=== PATIENT | female | born 1995 | race Caucasian/White ===

== ENCOUNTER 2017-07-18 01:35 | Inpatient (IN) | payer MEDICAID ==
[2017-07-18 02:13] LABS: APPEARANCE,URINE CLOUDY; BILIRUBIN,URINE NEGATIVE (NEGATIVE); COLOR,URINE YELLOW; GLUCOSE, URINE NEGATIVE (NEGATIVE); KETONES,URINE NEGATIVE (NEGATIVE); LEUKOCYTE ESTERASE,URINE TRACE (NEGATIVE); NITRITE,URINE NEGATIVE (NEGATIVE); PROTEIN,URINE 100 mg/dL (NEGATIVE); URINE SPECIFIC GRAVITY 1.009; UROBILINOGEN,URINE NEGATIVE mg/dL (<2.0)
[2017-07-18 02:16] LABS: AMNISURE (ROM) POSITIVE (NEGATIVE)
[2017-07-18] MEDS ORDERED: PENICILLIN G-K 5 MILLION UNIT VIAL ONE ×3 (02:17→10:39)
[2017-07-18] MEDS ORDERED: PENICILLIN G POTASSIUM 5,000,000 UNIT in DEXTROSE 5%-WATER 100 ML IV ONE (02:27)
[2017-07-18] MEDS ORDERED: RINGERS SOLUTION,LACTATED 1,000 ML IV ONE (02:27)
[2017-07-18] MEDS ORDERED: RINGERS SOLUTION,LACTATED 1,000 ML IV PRN (02:27)
[2017-07-18 02:29] LABS: URINE AMPHETAMINES SCREEN NEGATIVE; URINE BARBITURATES SCREEN NEGATIVE; URINE BENZODIAZEPINES SCREEN NEGATIVE; URINE COCAINE SCREEN NEGATIVE; URINE MARIJUANA (THC) SCREEN NEGATIVE; URINE METHADONE SCREEN NEGATIVE; URINE PHENCYCLIDINE SCREEN NEGATIVE
[2017-07-18 03:05] LABS: ABSOLUTE BASOPHILS # (AUTO) 0.1 10^3/uL (0.0-0.2); ABSOLUTE LYMPHOCYTES (AUTO) 2.2 10^3/uL (0.5-4.7); ABSOLUTE MONOCYTES (AUTO) 0.7 10^3/uL (0.1-1.4); ABSOLUTE NEUT (AUTO) 11.9 10^3/uL (1.7-8.2); BASOPHILS % (AUTO) 0.5 % (0-2); EOSINOPHILS % (AUTO) 0.2 % (0-6); HEMATOCRIT 29.5 % (36.0-47.0); HEMOGLOBIN 9.7 g/dL (12.0-15.5); LYMPHOCYTES % (AUTO) 14.5 % (13-45); MEAN CORPUSCULAR HEMOGLOBIN 28.1 pg (27.0-33.4); MEAN CORPUSCULAR VOLUME 85 fl (80-97); PLATELET COUNT 238 10^3/uL (150-450); RED BLOOD COUNT 3.47 10^6/uL (3.72-5.28); RED CELL DISTRIBUTION WIDTH 13.5 % (11.5-14.0); SEGMENTED NEUTROPHILS % (AUTO) 79.8 % (42-78); TOTAL CELLS COUNTED % (AUTO) 100 %; WHITE BLOOD COUNT 14.9 10^3/uL (4.0-10.5)
[2017-07-18] MEDS ORDERED: MISOPROSTOL 0.2 MG TABLET ONE ×2 (03:12)
[2017-07-18] MEDS ORDERED: OXYTOCIN/NORMAL SALINE 20 UNIT/1,000 ML RTUINJ ONE (03:12)
[2017-07-18] MEDS ORDERED: LIDOCAINE 1% INJ-PF (10 MG/ML) 30 ML SDV ONE (03:12)
--- NOTE | 2017-07-18 03:31 | Admission Physical ---
Datetime Report Generated by CPN: 07/18/2017 03:30 CURRENT ADMISSION Chief Complaint: Suspected Ruptured Membranes Indication for Induction: , Intrauterine ; Induction of Labor Indication for Induction- Other: SROM Admit Plan: Admit to Unit; Initiate Labor Induction Protocol ALLERGIES Medication Allergies: No Medication Allergies: No Known Allergies (10/27/2015) Latex: No Latex Allergies Food Allergies: NKA Environmental Allergies: NKA OBSTETRICAL HISTORY EDC: 08/27/2017 00:00 : 2 Para: 1 Term: 1 : 0 SAB: 0 IAB: 0 Livin Gestational Diabetes: No Rh Sensitization: No Incompetent Cervix: No CIELO: No Infertility: No ART Treatment: No Uterine Anomaly: No IUGR: No Hx Previous C/S: No Macrosomia: No Hx Loss/Stillborn: No PIH: No Hx : No Placenta Previa/Abruption: No Depression/PP Depression: No PTL/PROM: Yes Post Hemorrhage: No Obstetrical History Comments: G1- 40.6 baby boy 7lbs 8oz G2- current SEE RECORDS Alcohol: No Marijuana : No Cocaine: No Other Illicit Drugs: No Cigarettes: Never Smoker. 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 Surgery: No Heart Disease: No Hosp/Surgery: No Autoimmune Disorder: No Anesthetic Complications: No Kidney Disease: No Abnormal Pap Smear: No Neuro/Epilepsy: No Psychiatric Disorders: No Other Medical Diseases: No Hepatitis/Liver Disease: No Significant Family History: No Varicosities/Phlebitis: No Trauma/Violence : No Thyroid Dysfunction: No Medical History Comments: anemia INFECTIOUS HISTORY Gonorrhea: No Genital Herpes: No Chlamydia: No Tuberculosis: No Syphilis: No Hepatitis: No HIV/AIDS Exposure: No Rash or Viral Illness: No HPV: No PHYSICAL EXAM General: Normal HEENT: Normal Neurologic: Normal Thyroid: Normal Heart: Normal Lungs: Normal Breast: Deferred Back: Normal Abdomen: Normal Genitourinary Exam: Normal Extremities: Normal DTRs: Normal Pelvic Type: Adequate Vital Signs: Reviewed VAGINAL EXAM Dilatation: 1 Effacement: 50 Station: -1 MEMBRANES Pooling: Positive Membranes: Ruptured FETUS A EGA: 34.2 Monitoring: External US FHR- Baseline: 130 Variability: Moderate 6-25bpm Accelerations: 15X15 Decelerations: Variable FHR Category: Category I Admit Comment: plan abx and delivery PLANS FOR LABOR AND DELIVERY Labor and Delivery: None Pain Management: Epidural Feeding Preference: Formula Benefit of Breast Feed Discussed: Yes Circumcision: Yes INFORMED CONSENT Signature: with User ID: [email or web address]
[2017-07-18] MEDS ORDERED: NALBUPHINE HCL INJ 10 MG/1 ML AMPULE INJ ONE (04:17)
[2017-07-18] MEDS ORDERED: PROMETHAZINE HCL INJ 25 MG/1 ML VIAL IV ONE (04:17)
[2017-07-18] MEDS ORDERED: PROMETHAZINE HCL INJ 25 MG/1 ML VIAL ONE (04:21)
[2017-07-18] MEDS ORDERED: NALBUPHINE HCL INJ 10 MG/1 ML AMPULE ONE (04:22)
[2017-07-18 04:26] LABS: CHLAM PCR NOT DETECTED (NOT DETECT); GON PCR NOT DETECTED (NOT DETECT)
[2017-07-18] MEDS ORDERED: OXYTOCIN/NORMAL SALINE 20 UNIT/1,000 ML RTUINJ IV PRN ×2 (06:08→12:58)
[2017-07-18] MEDS ORDERED: PENICILLIN G POTASSIUM 2,500,000 UNIT in DEXTROSE 5%-WATER 50 ML IV SCH (06:27)
--- NOTE | 2017-07-18 09:17 | Admission Physical ---
Datetime Report Generated by CPN: 07/18/2017 09:17 CURRENT ADMISSION Chief Complaint: Suspected Ruptured Membranes Chief Complaint: Other Indication for Induction- Other: SROM Admit Impression : , Intrauterine ; Induction of Labor Admit Plan: Admit to Unit; Initiate Labor Induction Protocol Admit Plan- Other: TESTING ALLERGIES Medication Allergies: No Medication Allergies: No Known Allergies (07/18/2017) Medication Allergies: No Known Allergies (10/27/2015) Latex: No Latex Allergies Food Allergies: NKA Environmental Allergies: NKA OBSTETRICAL HISTORY EDC: 08/27/2017 00:00 : 2 Para: 1 Term: 1 : 0 SAB: 0 IAB: 0 Ectopic: 0 Livin Cesareans: 0 VBACs: 0 Multiple Births: 0 Gestational Diabetes: No Rh Sensitization: No Incompetent Cervix: No CIELO: No Infertility: No ART Treatment: No Uterine Anomaly: No IUGR: No Hx Previous C/S: No Macrosomia: No Hx Loss/Stillborn: No PIH: No Hx : No Placenta Previa/Abruption: No Depression/PP Depression: No PTL/PROM: Yes Post Hemorrhage: No Current Procedures: Ultrasound; NST Obstetrical History Comments: G1- 40.4 baby boy 7lbs 8oz G2- current SEE RECORDS Alcohol: No Marijuana : No Cocaine: No Other Illicit Drugs: No Cigarettes: Never Smoker. [id number] MEDICAL HISTORY Diabetes: No Blood Transfusion: No Pulmonary Disease (Asthma, TB): No Breast Disease: No Hypertension: No Boat Pilot Surgery: No Heart Disease: No Hosp/Surgery: Yes Autoimmune Disorder: No Anesthetic Complications: No Kidney Disease: No Abnormal Pap Smear: No Neuro/Epilepsy: No Psychiatric Disorders: Yes Other Medical Diseases: No Hepatitis/Liver Disease: No Significant Family History: No Varicosities/Phlebitis: No Trauma/Violence : No Thyroid Dysfunction: No Medical History Comments: anemia INFECTIOUS HISTORY Gonorrhea: No Genital Herpes: No Chlamydia: Yes Tuberculosis: No Syphilis: No Hepatitis: No HIV/AIDS Exposure: No Rash or Viral Illness: No HPV: No Infectious History Comments: chlamydia 2015 PHYSICAL EXAM General: Normal HEENT: Normal Neurologic: Normal Thyroid: Normal Heart: Normal Lungs: Normal Breast: Deferred Back: Normal Abdomen: Normal Genitourinary Exam: Normal Extremities: Normal DTRs: Normal Pelvic Type: Adequate Physical Exam Comments: TESTING Vital Signs: Reviewed VAGINAL EXAM Dilatation: 1 Effacement: 50 Station: -1 MEMBRANES Pooling: Positive Membranes: Ruptured FETUS A EGA: 34.2 Monitoring: External US FHR- Baseline: 130 Variability: Moderate 6-25bpm Accelerations: 15X15 Decelerations: Variable FHR Category: Category I Admit Comment: plan abx and delivery PLANS FOR LABOR AND DELIVERY Labor and Delivery: None Pain Management: Epidural Feeding Preference: Formula Benefit of Breast Feed Discussed: Yes Circumcision: Yes INFORMED CONSENT Assignment: Britany Lopez MD Signature: with User ID: Whitney Signature: with User ID: Miriam, Addendum/Amendment: Testing format changes. Signature: with User ID: Miriam Signature: with User ID: Miriam : with User ID: Whitney : with User ID: Miriam, Addendum/Amendment: Testing format changes. : with User ID: Miriam : with User ID: Miriam
[2017-07-18] MEDS ORDERED: PENICILLIN G-K 5 MILLION UNIT VIAL IV SCH (10:00)
[2017-07-18] MEDS ORDERED: FENTANYL CITRATE INJ/PF 100 MCG/2 ML AMPUL ONE (10:17)
[2017-07-18] MEDS ORDERED: PHENYLEPHRINE HCL INJ/PF 10 MG/1 ML SDV ONE (10:17)
[2017-07-18] MEDS ORDERED: FENTANYL/BUPIVACAINE/NS/PF 200 MCG/100 ML RTUINJ EPI ONE (10:17)
[2017-07-18] MEDS ORDERED: EPHEDRINE SULFATE INJ 50 MG/1 ML AMPULE ONE (10:17)
[2017-07-18] MEDS ORDERED: BUPIVACAINE HCL 0.25 % INJ/PF (2.5 MG/1 ML) 30 ML VIAL ONE (10:17)
--- NOTE | 2017-07-18 11:42 | L&D Progress Notes ---
PROGRESS NOTES Datetime Report Generated by CPN: 07/18/2017 11:41 PROGRESS NOTE Impression: Normal Progression of Labor Procedures: Sterile Vag Exam Plan: Continue Present Management Informed Consent Obtained: Vaginal Delivery; Risks, Benefits and Alternatives Discussed Vital Signs : Reviewed Comment: pt now comfortable s/p epidural. al/c/+1. Anticpate VAGINAL EXAM Dilatation: 9 Dilatation: 1 Effacement: 100 Effacement: 50 Station: 1 Station: -1 Contractions: q 2 MEMBRANES Pooling: Positive Membranes: Ruptured Membranes: Ruptured FETUS A FHR - Baseline: 135 Monitoring: External US Variability: Moderate 6-25bpm Accelerations: 15X15 Decelerations: Early FHR Category: Category I : 34.2 SIGNATURE SIGNATURE: [id number];[id number] SIGNATURE: [id number] Signature: with User ID: Chelsea
--- NOTE | 2017-07-18 12:32 | L&D Progress Notes ---
PROGRESS NOTES Datetime Report Generated by CPN: 07/18/2017 12:32 PROGRESS NOTE Impression: Normal Progression of Labor Procedures: Sterile Vag Exam Plan: Continue Present Management Informed Consent Obtained: Vaginal Delivery; Risks, Benefits and Alternatives Discussed Vital Signs : Reviewed Comment: pt now comfortable s/p epidural. prior cvx check by RN. Pt with variables and earlys - therefore I re-eval cvx and cvx 8/80/+1/ Anticipate VAGINAL EXAM Dilatation: 9 Effacement: 100 Station: 1 Contractions: q 2 MEMBRANES Membranes: Ruptured FETUS A FHR - Baseline: 135 Monitoring: External US Variability: Moderate 6-25bpm Accelerations: 15X15 Decelerations: Early FHR Category: Category I FETUS C SIGNATURE: [id number];[id number] Signature: with User ID: Chelsea
[2017-07-18] MEDS ORDERED: MISOPROSTOL 0.2 MG TABLET PR PRN (12:58)
[2017-07-18] MEDS ORDERED: ACETAMINOPHEN 325 MG TABLET PO PRN (12:58)
[2017-07-18] MEDS ORDERED: DIPHENHYDRAMINE HCL 25 MG CAPSULE PO PRN (12:58)
[2017-07-18] MEDS ORDERED: PROMETHAZINE HCL 25 MG SUPP.RECT PR PRN (12:58)
[2017-07-18] MEDS ORDERED: ZOLPIDEM TARTRATE 5 MG TABLET PO PRN (12:58)
[2017-07-18] MEDS ORDERED: GLYCERIN/WITCH HAZEL LEAF 1 EACH MED..PAD TP PRN (12:58)
[2017-07-18] MEDS ORDERED: NA PHOS,M-B/NA PHOS,DI-BA (ADULT) 133 ML ENEMA PR PRN (12:58)
[2017-07-18] MEDS ORDERED: PROMETHAZINE HCL INJ 25 MG/1 ML VIAL IV PRN (12:58)
[2017-07-18] MEDS ORDERED: DIPH/PERTUSS(ACELL)/TETANUS VAC/PF 0.5 ML SYR (>=10YO) IM PRN (12:58)
[2017-07-18] MEDS ORDERED: ACETAMINOPHEN WITH CODEINE #3 TABLET PO PRN ×2 (12:58)
[2017-07-18] MEDS ORDERED: PSEUDOEPHEDRINE HCL 30 MG TABLET PO PRN (12:58)
[2017-07-18] MEDS ORDERED: MAGNESIUM HYDROXIDE SUSP 30 ML UDCUP PO PRN (12:58)
[2017-07-18] MEDS ORDERED: PROMETHAZINE HCL 25 MG TABLET PO PRN (12:58)
[2017-07-18] MEDS ORDERED: BENZOCAINE/MENTHOL AEROSOL SPRAY 56 ML TOP PRN (12:58)
[2017-07-18] MEDS ORDERED: DIBUCAINE 1% OINTMENT 28 GM TP PRN (12:58)
[2017-07-18] MEDS ORDERED: MEASLES,MUMPS&RUBELLA VACC/PF 0.5 ML VIAL SUBCUT PRN (12:58)
--- NOTE | 2017-07-18 14:34 | Delivery Summary ---
Del Sum A-C Datetime Report Generated by CPN: 07/18/2017 14:34 DELIVERY PERSONNEL DELIVERY PERSONNEL: [id number] Delivery Doctor:: Anais Edmonds MD Labor and Delivery Nurse:: Valerie Fong RNspecial services supervisor Nurse:: Kiera Meyer RN Nursery Nurse:: Dickson Barboza RN Nursery Nurse:: Elizabeth Damico RN Tobacco Drummer/HORTICULTURE SUPERINTENDENT: Jerri Bourgeois CNA II MATERNAL INFORMATION Delivery Anesthesia: Epidural Medications After Delivery: Pitocin Drip 20 Units/1000ml NSS; Other-Please Comment Meds After Delivery Comment: Cytotec 1000mcg MA Estimated Blood Loss (ml): 300 Maternal Complications: Premature Rupture of Membranes Provider Comments: VMI delivered in [place] presentation. No nuchal cord. Shoulders and body delivered without difficulty. Cord doubly clamped and cut and infant to maternal abd for NRP. NICU team present. Placenta delivered intact spontaneously. No perineal lacerations. FF at U. Good hemostasis. Mother and baby stable upon provider leaving the room. EBL 300ml, QBL pending. LABOR SUMMARY EDC: 08/27/2017 00:00 No. Babies in Womb: 1 Attempted: No Labor Anesthesia: Epidural LABOR INFORMATION Reason for Induction: Premature Rupture of Membranes Onset of Labor: 07/18/2017 00:00 Complete Dilatation: 07/18/2017 12:34 Oxytocin: Induction Group B Beta Strep: unknown Antibiotics # of Doses: 3 Antibiotics Time of Last Dose: 1043 Name of Antibiotic Given: PCN Steroids Given: None Reason Steroids Not Administered: Not Applicable MEMBRANES Membranes Rupture Method: Spontaneous Rupture of Membranes: 07/18/2017 00:00 Length of Rupture (hr): 12.60 Amniotic Fluid Color: Clear Amniotic Fluid Amount: Moderate Amniotic Fluid Odor: Normal STAGES OF LABOR Stage 1 hr: 12 Stage 1 min: 34 Stage 2 hr: 0 Stage 2 min: 2 Stage 3 hr: 0 Stage 3 min: 2 Total Time in Labor hr: 12 Total Time in Labor min: 38 VAGINAL DELIVERY Episiotomy: None Laceration #1: None Laceration Extension #1: N/A Laceration Repair: Not Applicable Laceration Repair Note: No perineal laceration Sponge Count Correct: Yes Sharps Count Correct: Yes CSECTION DELIVERY Primary Indication: N/A Secondary Indication: N/A CSection Incidence: N/A Labor: N/A Elective: N/A CSection Incision: N/A BABY A INFORMATION Infant Delivery Date/Time: 07/18/2017 12:36 Method of Delivery: Vaginal Born in Route : No : N/A Forceps: N/A Vacuum Extraction: N/A Shoulder Dystocia : No PRESENTATION/POSITION BABY A Presentation: Cephalic Cephalic Presentation: Vertex Vertex Position: Left Occipital Anterior Breech Presentation: N/A PLACENTA INFORMATION BABY A Placenta Delivery Time : 07/18/2017 12:38 Placenta Method of Delivery: Spontaneous Placenta Status: Delivered SCORES BABY A Heart Rate 1 min: >100 bpm Resp Effort 1 min: Good Cry Reflex Irritability 1 min: Cough or Sneeze or Pulls Away Muscle Tone 1 min: Active Motion Color 1 min: Blue/Pale Resuscitation Effort 1 min: Tactile Stimulation SCORE 1 MIN: 8 Heart Rate 5 min: >100 bpm Resp Effort 5 min: Good Cry Reflex Irritability 5 min: Cough or Sneeze or Pulls Away Muscle Tone 5 min: Active Motion Color 5 min: Body Leming, Extremities Blue SCORE 5 MIN: 9 INFORMATION BABY A Gestational Age at Delivery: 34.2 Gestational Status: Late - 34- 36.6 Weeks Infant Outcome : Liveborn Condition : Stable Sex: Male IDENTIFICATION BABY A Infant Verification Date/Time: 07/18/2017 13:24 ID Band Number: [id number] Mother's Name Verified: Yes Infant RN Verifying Infant: A Fong RN Additional Verifying Personnel: [employer] ST WEIGHT/LENGTH BABY A Infant Birthweight (gm): 2353 Weight (lb): 5 Weight (oz): 3 Length (in): 18.25 Length (cm): 46.36 CORD INFORMATION BABY A No. Cord Vessels: 3 Nuchal Cord : N/A Cord Blood Taken: Yes-For Eval (Mom's Blood Type - or O+) Suction: None ASSESSMENT BABY A Complications: Multiple Variable Decels Physical Findings at Delivery: Within Normal Limits Respirations: Grunting; Sternal Retractions Skin to Skin: Yes Oil Analyst/ALS Called : No Infant Care By: Hao Barboza RN/C Mookie RN Transferred To: NICU BABY B INFORMATION : N/A SIGNATURES Signature: with User ID: [email or web address]
[2017-07-18] MEDS: IBUPROFEN 800 MG TABLET PO SCH ×2 (18:05→22:01)
[2017-07-18] MEDS: DOCUSATE SODIUM 100 MG CAPSULE PO SCH (18:05)
[2017-07-18] MEDS: FERROUS SULFATE 325 MG TABLET PO SCH (18:05)
[2017-07-18] MEDS: FAMOTIDINE 20 MG TABLET PO SCH (22:02)
[2017-07-19] MEDS: IBUPROFEN 800 MG TABLET PO SCH ×3 (07:07→21:01)
[2017-07-19 08:38] LABS: HEMATOCRIT 27.7 % (36.0-47.0); MEAN CORPUSCULAR HEMOGLOBIN 27.9 pg (27.0-33.4); MEAN CORPUSCULAR HGB CONC 32.5 g/dL (32.0-36.0); MEAN CORPUSCULAR VOLUME 86 fl (80-97); PLATELET COUNT 194 10^3/uL (150-450); RED BLOOD COUNT 3.23 10^6/uL (3.72-5.28); WHITE BLOOD COUNT 11.7 10^3/uL (4.0-10.5)
[2017-07-19] MEDS: FAMOTIDINE 20 MG TABLET PO SCH ×2 (10:30→21:06)
[2017-07-19] MEDS: SENNOSIDES/DOCUSATE 8.6-50 MG 1 EACH TABLET PO SCH (10:30)
[2017-07-19] MEDS: DOCUSATE SODIUM 100 MG CAPSULE PO SCH ×2 (10:30→17:01)
[2017-07-19] MEDS: PRENATAL VITAMIN W DHA CAPSULE PO SCH (10:30)
[2017-07-19] MEDS: FERROUS SULFATE 325 MG TABLET PO SCH ×2 (10:31→17:01)
--- NOTE | 2017-07-19 11:06 | PDOC PROGRESS REPORT ---
Subjective-OB Progress Note for:: 07/19/17 Subjective: tolerating diet without nausea, bleeding slowing, pain controlled with current meds. no needs expressed Physical Exam (OB) Vital Signs: Temp Pulse Resp BP Pulse Ox 97.8 F 58 L 14 104/59 L 98 07/19/17 07:59 07/19/17 07:59 07/19/17 07:59 07/19/17 07:59 07/19/17 07:59 Intake & Output 07/18/17 07/19/17 07/20/17 06:59 06:59 06:59 Intake Total 300 250 Balance 300 250 Weight 78.7 kg - Abdomen Description: Soft, Round Hernia Present: No Fundal Description: Firm, Midline Fundal Height: u/u - u/2 - Abdominal Tenderness: Nontender - Extremities Lower extremities: Mio's sign - neg Calf: Normal, Nontender Objective-Diagnostic Laboratory: 07/19/17 07:39 07/19/17 07:39 WBC 11.7 H RBC 3.23 L Hgb 9.0 L Hct 27.7 L MCV 86 MCH 27.9 MCHC 32.5 RDW 14.0 Plt Count 194 Assessment and Plan(PN) - Assessment and Plan (1) Chlamydia infection affecting Is this a current diagnosis for this admission?: Yes (2) Delivery normal Is this a current diagnosis for this admission?: Yes - Time Spent with Patient Time with patient: Less than 15 minutes - Disposition Anticipated Discharge: Home Within: within 24 hours
[2017-07-20] MEDS: IBUPROFEN 800 MG TABLET PO SCH (07:17)
[2017-07-20 08:10] VITALS: BP 114/61
[2017-07-20] MEDS: FAMOTIDINE 20 MG TABLET PO SCH (09:02)
[2017-07-20] MEDS: DOCUSATE SODIUM 100 MG CAPSULE PO SCH (09:02)
[2017-07-20] MEDS: PRENATAL VITAMIN W DHA CAPSULE PO SCH (09:02)
[2017-07-20] MEDS: FERROUS SULFATE 325 MG TABLET PO SCH (09:02)
[2017-07-20] MEDS: SENNOSIDES/DOCUSATE 8.6-50 MG 1 EACH TABLET PO SCH (09:02)
--- NOTE | 2017-07-20 10:48 | PDOC DISCHARGE SUMMARY ---
Final Diagnosis Discharge Date: 07/20/17 - Final Diagnosis (1) Chlamydia infection affecting Is this a current diagnosis for this admission?: Yes (2) Delivery normal Is this a current diagnosis for this admission?: Yes Discharge Data - Discharge Medication Prescriptions: Ibuprofen [Motrin 800 mg Tablet] 800 mg PO Q8HP PRN #90 tablet PRN Reason: Home Medications: Pnv95/Iron Fum/Folic Acid [ Caplet] 1 tab PO DAILY 10/20/15 Ferrous Sulfate [Feosol 325 mg Tablet] 325 mg PO BID #60 tablet 10/29/15 Ascorbic Acid [Vitamin C 500 mg Tablet] 500 mg PO DAILY 07/18/17 Ibuprofen [Motrin 800 mg Tablet] 800 mg PO Q8HP PRN #90 tablet 07/20/17 Gestational Age: 34+2 Reason(s) for Admission: Other - PPROM IOL Procedures: NST Intrapartum Procedure(s): Spontaneous Vaginal Delivery - Data Baby 1 Male Weight: 2.353 kg Home with Mother: No - in NICU - Diagnosis Test Laboratory: Temp Pulse Resp BP Pulse Ox 97.6 F 64 20 114/61 99 07/20/17 08:06 07/20/17 08:06 07/20/17 08:06 07/20/17 08:06 07/20/17 08:06 07/18/17 07/18/17 07/19/17 01:45 02:53 07:39 RBC 3.47 L 3.23 L Hgb 9.7 L 9.0 L Hct 29.5 L 27.7 L Urine Opiates Screen NEGATIVE - Discharge information/Instructions Discharge Activity: Activity As Tolerated, Balance Activity w/Rest, Pelvic Rest Discharge Diet: Regular Disposition: HOME, SELF-CARE Follow up with: [facility] in: 4, Weeks
== END 2017-07-20 13:08 | disposition home or self-care (01) | DRG 775 ==
LOC: LC 01:35 → LR 02:21 → 2S 14:44
PROVIDERS: ADMIT Obstetrics & Gynecology; ATTEND Obstetrics & Gynecology
PROC: 10E0XZZ Delivery of Products of Conception, External Approach (ICD-10-PCS; principal; 2017-07-18)
PROC: 3E033VJ Introduction of Other Hormone into Peripheral Vein, Percutaneous Approach (ICD-10-PCS; 2017-07-18)
PROC: 4A1HXCZ Monitoring of Products of Conception, Cardiac Rate, External Approach (ICD-10-PCS; 2017-07-18)
PROC: 3E0234Z Introduction of Serum, Toxoid and Vaccine into Muscle, Percutaneous Approach (ICD-10-PCS; 2017-07-20)
DX: O42.013 Preterm premature rupture of membranes, onset of labor within 24 hours of rupture, third trimester (principal); D64.9 Anemia, unspecified; O99.02 Anemia complicating childbirth; Z23 Encounter for immunization; Z3A.34 34 weeks gestation of pregnancy; Z37.0 Single live birth
CPT/HCPCS: 36415; 80307; 81001; 84112; 85025; 85027; 86592; 86850; 86900; 86901; 87491; 87591; 88307; 90715; 94760; J2300; J2370; J2540; J2550; J2590; J3010; J3490

== ENCOUNTER 2018-09-17 15:32 | Emergency (ER) | payer MEDICAID ==
--- NOTE | 2018-09-17 16:05 | ER Document Report ---
ED General - General Chief Complaint: Eye Problem Stated Complaint: EYE PROBLEM, PROBLEM WITH URINATION Time Seen by Provider: 09/17/18 15:52 Primary Care Provider: JOHN HAMEED MD [ACTIVE STAFF] - Follow up as needed Mode of Arrival: Ambulatory Information source: Patient TRAVEL OUTSIDE OF THE [place] IN LAST 30 DAYS: No - HPI Patient complains to provider of: Right eye itching, foreign body sensation, dysuria Onset: Other - 4 days ago Onset/Duration: Sudden Quality of pain: Burning Severity: Moderate Pain Level: 3 Associated symptoms: None Exacerbated by: Denies Relieved by: Denies Similar symptoms previously: No Recently seen / treated by doctor: No Notes: 23-year-old female who is 3 para 2 at 24 weeks gestation with irritated right eye. Feels like foreign body in it. Does not wear contacts or glasses. Periorbital bruising and some conjunctival hemorrhage present. Claims no trauma. Also having burning with chin for a couple of days. No fevers or chills. No nausea or vomiting. No diarrhea. - Related Data Allergies/Adverse Reactions: No Known Allergies Allergy (Verified 09/17/18 15:33) Past Medical History - General Information source: Patient - Social History Smoking Status: Smoker,Current Status Unk Family History: Reviewed & Not Pertinent Psychiatric Medical History: Reports: Hx Depression - Immunizations Immunizations up to date: Yes Hx Diphtheria, Pertussis, Tetanus Vaccination: Yes Hx Pneumococcal Vaccination: 05/05/11 Review of Systems - Review of Systems Notes: Constitutional: No fevers. No chills. EENT: Right eye redness, right periorbital bruising, positive sub-conjunctival hemorrhage Cardiovascular: No chest pain. No palpitations. Respiratory: No cough. No shortness of breath. No respiratory distress. Gastrointestinal: No abdominal pain. No nausea, vomiting, or diarrhea. Genitourinary: Atraumatic. No lesions. No pain. No discharge. Musculoskeletal: Atraumatic. No swelling. No deformities. Skin: No rash or lesions. Lymphatic: No swollen lymph nodes. Neurologic: No headache. No syncope. Psychiatric: No suicidal or homicidal ideation. Physical Exam - Vital signs Vitals: Temp Pulse Resp BP Pulse Ox 98.6 F 74 16 120/52 L 100 09/17/18 15:42 09/17/18 15:42 09/17/18 15:42 09/17/18 15:42 09/17/18 15:42 - Notes Notes: General: Well-developed, well-nourished. In no acute distress. Non-toxic appearing. Cardiac: Well-perfused. Regular rate and rhythm. No murmurs, rubs, or gallops. Pulmonary: No respiratory distress. No cyanosis. Bilateral lung fiels are clear to auscultation. Abdominal: Non-distended. Non-rigid. Bowels sounds are present in all four quadrants. No guarding or rebound. HEENT: Head is atraumatic. Right-sided face is examined. There is right periorbital bruising. There is no obvious bony deformity. PERRLA, EOMI, sub- conjunctival hemorrhages to the right eye. No mattering of the eyelashes. No corneal abnormality noted on fluorescein stain exam Neck: Supple. No adenopathy. No meningismus. Dermatologic: Warm with good turgor. No rash. Atraumatic. Chest: Atraumatic. No chest wall tenderness to palpation. Musculoskeletal: Moves all extremities well. No range of motion deficits. no muscular or joint tenderness. No paraspinal muscle tenderness. no midline spinal tenderness or step-off. Genitourinary: Examination deferred Neurologic: No gross neurologic deficits. Psychiatric: Normal mood. Course - Re-evaluation Re-evalutation: 09/17/18 16:06 The right periorbit almost looks traumatic especially with the subconjunctival hemorrhage present. Will try to get the patient alone and double check that there was no injury that caused these findings. We will send a urinalysis. We will get a Amaya lamp exam with floor seen to see if there is any corneal abnormalities. 09/17/18 16:57 Urine has quite a bit of bacteria and leuk esterase. Unfortunately there is also quite a good bit of squamous epithelial cells suggestive of a dirty catch. I will put her on some Keflex for 5 days just to be thorough. - Vital Signs Vital signs: Temp Pulse Resp BP Pulse Ox 98.6 F 74 16 120/52 L 100 09/17/18 15:42 09/17/18 15:42 09/17/18 15:42 09/17/18 15:42 09/17/18 15:42 - Laboratory Laboratory results interpreted by me: 05/16/19 15:47 Urine Protein 100 H Urine Ketones TRACE H Urine Urobilinogen 4.0 H Ur Leukocyte Esterase MODERATE H Discharge - Discharge Clinical Impression: Allergic conjunctivitis Qualifiers: Laterality: right Qualified Code(s): H10.11 - Acute atopic conjunctivitis, right eye UTI (urinary tract infection) Qualifiers: Urinary tract infection type: site unspecified Hematuria presence: without hematuria Qualified Code(s): N39.0 - Urinary tract infection, site not specified Condition: Good Disposition: HOME, SELF-CARE Instructions: Cephalexin ([facility]), Conjunctivitis, Allergic, Urinary Tract Infection ([facility]) Prescriptions: Cephalexin Monohydrate [Keflex 500 mg Capsule] 500 mg PO TID 5 Days #15 capsule Cromolyn Sodium [Crolom Opthalmic Drops] 1 drop OP QID #1 bottle Referrals: JOHN HAMEED MD [ACTIVE STAFF] - Follow up as needed
[2018-09-17 16:40] LABS: APPEARANCE,URINE TURBID; BILIRUBIN,URINE NEGATIVE (NEGATIVE); COLOR,URINE YELLOW; GLUCOSE, URINE NEGATIVE (NEGATIVE); KETONES,URINE TRACE mg/dL (NEGATIVE); LEUKOCYTE ESTERASE,URINE MODERATE (NEGATIVE); NITRITE,URINE NEGATIVE (NEGATIVE); PROTEIN,URINE 100 mg/dL (NEGATIVE); URINE SPECIFIC GRAVITY 1.029
[2018-09-17 17:53] VITALS: BP 102/62
== END 2018-09-17 17:53 | disposition home or self-care (01) ==
LOC: ER 15:32
DX: O26.892 Other specified pregnancy related conditions, second trimester (principal); H10.11 Acute atopic conjunctivitis, right eye; H11.31 Conjunctival hemorrhage, right eye; O23.42 Unspecified infection of urinary tract in pregnancy, second trimester; O9A.212 Injury, poisoning and certain other consequences of external causes complicating pregnancy, second trimester; S00.11XA Contusion of right eyelid and periocular area, initial encounter; X58.XXXA Exposure to other specified factors, initial encounter; Z3A.24 24 weeks gestation of pregnancy
CPT/HCPCS: 81001; 99283

== ENCOUNTER 2018-12-20 00:10 | Outpatient (CLI) | payer MEDICAID ==
[2018-12-20 00:44] LABS: APPEARANCE,URINE CLEAR; BILIRUBIN,URINE NEGATIVE (NEGATIVE); COLOR,URINE YELLOW; GLUCOSE, URINE NEGATIVE (NEGATIVE); KETONES,URINE NEGATIVE (NEGATIVE); LEUKOCYTE ESTERASE,URINE SMALL (NEGATIVE); NITRITE,URINE NEGATIVE (NEGATIVE); PROTEIN,URINE 30 mg/dL (NEGATIVE); URINE SPECIFIC GRAVITY 1.023
[2018-12-20 01:51] LABS: URINE AMPHETAMINES SCREEN NEGATIVE; URINE BARBITURATES SCREEN NEGATIVE; URINE BENZODIAZEPINES SCREEN NEGATIVE; URINE COCAINE SCREEN NEGATIVE; URINE MARIJUANA (THC) SCREEN NEGATIVE; URINE METHADONE SCREEN NEGATIVE; URINE PHENCYCLIDINE SCREEN NEGATIVE
== END 2018-12-20 02:03 | disposition home or self-care (01) ==
LOC: LC 00:10
PROVIDERS: ATTEND Obstetrics & Gynecology
PROC: 4A1HXCZ Monitoring of Products of Conception, Cardiac Rate, External Approach (ICD-10-PCS; principal; 2018-12-20)
DX: O47.1 False labor at or after 37 completed weeks of gestation (principal); Z3A.38 38 weeks gestation of pregnancy
CPT/HCPCS: 59025; 80307; 81005

== ENCOUNTER 2019-01-05 03:16 | Inpatient (IN) | payer MEDICAID ==
[2019-01-05 03:51] LABS: APPEARANCE,URINE TURBID; BILIRUBIN,URINE NEGATIVE (NEGATIVE); COLOR,URINE AMBER; GLUCOSE, URINE NEGATIVE (NEGATIVE); KETONES,URINE NEGATIVE (NEGATIVE); LEUKOCYTE ESTERASE,URINE SMALL (NEGATIVE); NITRITE,URINE NEGATIVE (NEGATIVE); PROTEIN,URINE 100 mg/dL (NEGATIVE); URINE SPECIFIC GRAVITY 1.019; UROBILINOGEN,URINE NEGATIVE mg/dL (<2.0)
[2019-01-05 04:08] LABS: URINE AMPHETAMINES SCREEN NEGATIVE; URINE BARBITURATES SCREEN NEGATIVE; URINE BENZODIAZEPINES SCREEN NEGATIVE; URINE COCAINE SCREEN NEGATIVE; URINE MARIJUANA (THC) SCREEN NEGATIVE; URINE METHADONE SCREEN NEGATIVE; URINE PHENCYCLIDINE SCREEN NEGATIVE
[2019-01-05] MEDS ORDERED: EPHEDRINE SULFATE INJ 50 MG/1 ML AMPULE ONE (04:22)
[2019-01-05] MEDS ORDERED: MISOPROSTOL 0.2 MG TABLET ONE (04:22)
[2019-01-05] MEDS ORDERED: OXYTOCIN 10 UNIT/ML VIAL ONE (04:22)
[2019-01-05] MEDS ORDERED: FENTANYL/BUPIVACAINE/NS/PF 300 MCG/150 ML RTUINJ EPI ONE (04:22)
[2019-01-05] MEDS ORDERED: LIDOCAINE 1% INJ-PF (10 MG/ML) 30 ML SDV ONE (04:22)
[2019-01-05] MEDS ORDERED: OXYTOCIN/NORMAL SALINE 20 UNIT/1,000 ML RTUINJ ONE (04:23)
[2019-01-05] MEDS ORDERED: BUPIVACAINE HCL 0.25 % INJ/PF (2.5 MG/1 ML) 30 ML VIAL ONE (04:23)
[2019-01-05] MEDS ORDERED: RINGERS SOLUTION,LACTATED 1,000 ML IV PRN (04:35)
[2019-01-05] MEDS ORDERED: OXYTOCIN/NORMAL SALINE 20 UNIT/1,000 ML RTUINJ IV PRN ×2 (04:36→09:59)
[2019-01-05] MEDS ORDERED: FENTANYL CITRATE INJ/PF 100 MCG/2 ML AMPUL ONE (05:05)
[2019-01-05 05:20] LABS: ABSOLUTE LYMPHOCYTES (AUTO) 2.2 10^3/uL (0.5-4.7); ABSOLUTE MONOCYTES (AUTO) 0.8 10^3/uL (0.1-1.4); ABSOLUTE NEUT (AUTO) 10.8 10^3/uL (1.7-8.2); BASOPHILS % (AUTO) 0.3 % (0-2); EOSINOPHILS % (AUTO) 0.2 % (0-6); HEMATOCRIT 30.7 % (36.0-47.0); LYMPHOCYTES % (AUTO) 15.6 % (13-45); MEAN CORPUSCULAR HEMOGLOBIN 26.8 pg (27.0-33.4); MEAN CORPUSCULAR HGB CONC 32.5 g/dL (32.0-36.0); MEAN CORPUSCULAR VOLUME 83 fl (80-97); MONOCYTES % (AUTO) 5.8 % (3-13); PLATELET COUNT 238 10^3/uL (150-450); RED BLOOD COUNT 3.73 10^6/uL (3.72-5.28); RED CELL DISTRIBUTION WIDTH 14.8 % (11.5-14.0); SEGMENTED NEUTROPHILS % (AUTO) 78.1 % (42-78); TOTAL CELLS COUNTED % (AUTO) 100 %; WHITE BLOOD COUNT 13.9 10^3/uL (4.0-10.5)
--- NOTE | 2019-01-05 05:51 | Admission Physical ---
Datetime Report Generated by CPN: 01/05/2019 05:50 CURRENT ADMISSION Chief Complaint: Uterine Contractions; Suspected Ruptured Membranes Indication for Induction: Not Applicable; Postterm Admit Impression : Term, Intrauterine Admit Plan: Admit to Unit; Initiate Labor Protocol ALLERGIES Medication Allergies: No Medication Allergies: No Known Allergies (12/20/2018) Latex: No Latex Allergies Food Allergies: None Environmental Allergies: None OBSTETRICAL HISTORY EDC: 01/03/2019 00:00 : 3 Para: 2 Term: 1 : 1 SAB: 0 IAB: 0 Ectopic: 0 Livin Cesareans: 0 VBACs: 0 Multiple Births: 0 Gestational Diabetes: No Rh Sensitization: No Incompetent Cervix: Yes CIELO: No Infertility: No ART Treatment: No Uterine Anomaly: No IUGR: No Hx Previous C/S: No Macrosomia: No Hx Loss/Stillborn: No PIH: No Hx : No Placenta Previa/Abruption: No Depression/PP Depression: No PTL/PROM: Yes Post Hemorrhage: No Current Procedures: Ultrasound Obstetrical History Comments: G1 - at 41 weeks (2015) G2 - at 34 weeks (2017), PPROM G3 - current , anemia SEE RECORDS Alcohol: No Marijuana : No Cocaine: No Other Illicit Drugs: No Cigarettes: Never Smoker. [id number] MEDICAL HISTORY Diabetes: No Blood Transfusion: No Pulmonary Disease (Asthma, TB): No Breast Disease: No Hypertension: No Comb Tender Surgery: No Heart Disease: No Hosp/Surgery: No Autoimmune Disorder: No Anesthetic Complications: No Kidney Disease: No Abnormal Pap Smear: No Neuro/Epilepsy: No Psychiatric Disorders: No Other Medical Diseases: No Hepatitis/Liver Disease: No Significant Family History: No Varicosities/Phlebitis: No Trauma/Violence : No Thyroid Dysfunction: No Medical History Comments: childbirth INFECTIOUS HISTORY Gonorrhea: No Genital Herpes: No Chlamydia: Yes Tuberculosis: No Syphilis: No Hepatitis: No HIV/AIDS Exposure: No Rash or Viral Illness: No HPV: No Infectious History Comments: 2016/treated PHYSICAL EXAM General: Normal HEENT: Normal Neurologic: Normal Thyroid: Normal Heart: Normal Lungs: Normal Breast: Normal Back: Normal Abdomen: Normal Genitourinary Exam: Normal Extremities: Normal DTRs: Normal Pelvic Type: Adequate Vital Signs: Reviewed; Within Normal Limits VAGINAL EXAM Dilatation: 3 Effacement: 50 Station: -1 MEMBRANES Pooling: Positive Membranes: Ruptured Amniotic Fluid Color: Clear FETUS A EGA: 40.2 Monitoring: External US FHR- Baseline: 120 Variability: Moderate 6-25bpm Accelerations: 15X15 Decelerations: None FHR Category: Category I Estimated Weight (gm): 3500 Presentation: Vertex PLANS FOR LABOR AND DELIVERY Labor and Delivery: None Pain Management: Epidural Feeding Preference: Both Circumcision: Yes INFORMED CONSENT Signature: with User ID: [email or web address]
[2019-01-05] MEDS ORDERED: MEASLES,MUMPS&RUBELLA VACC/PF 0.5 ML VIAL SUBCUT PRN (09:59)
[2019-01-05] MEDS ORDERED: BENZOCAINE/MENTHOL AEROSOL SPRAY 56 ML TOP PRN (09:59)
[2019-01-05] MEDS ORDERED: ZOLPIDEM TARTRATE 5 MG TABLET PO PRN (09:59)
[2019-01-05] MEDS ORDERED: DIBUCAINE 1% OINTMENT 56 GM TP PRN (09:59)
[2019-01-05] MEDS ORDERED: DIPH/PERTUSS(ACELL)/TETANUS VAC/PF 0.5 ML SYR (>=10YO) IM PRN (09:59)
[2019-01-05] MEDS ORDERED: ACETAMINOPHEN WITH CODEINE #3 TABLET PO PRN (09:59)
--- NOTE | 2019-01-05 10:37 | Warning Signs in Babies ---
VOD Warning Signs Datetime Report Generated by [facility]: 01/05/2019 10:37 VOD#608 -Warning Signs in Babies: Viewed with Parent(s)/Family (12/20/2018 00:27:Jaclyn Roberts RN)
--- NOTE | 2019-01-05 11:29 | Warning Signs in Babies ---
VOD Warning Signs Datetime Report Generated by [facility]: 01/05/2019 11:29 VOD#608 -Warning Signs in Babies: Viewed with Parent(s)/Family (01/05/2019 11:16:Iker Schuler RN)
[2019-01-05] MEDS: FERROUS SULFATE 325 MG TABLET PO SCH ×2 (12:37→17:42)
[2019-01-05] MEDS: PRENATAL VITAMIN W DHA CAPSULE PO SCH (12:37)
[2019-01-05] MEDS: IBUPROFEN 800 MG TABLET PO SCH ×3 (12:37→21:03)
[2019-01-05] MEDS: DOCUSATE SODIUM 100 MG CAPSULE PO SCH ×2 (12:37→17:43)
[2019-01-05] MEDS: SENNOSIDES/DOCUSATE 8.6-50 MG 1 EACH TABLET PO SCH (12:37)
--- NOTE | 2019-01-05 19:08 | Delivery Summary ---
Del Sum A-C Datetime Report Generated by CPN: 01/05/2019 19:08 DELIVERY PERSONNEL DELIVERY PERSONNEL: [id number] Delivery Doctor:: Jennyfer Gordillo CNM Labor and Delivery Nurse:: Iker Schuler RNfield support engineer Nurse:: Jaclyn Roberts RN Nursery Nurse:: Kiera Juarez RN Student Observers:: TRACIE GARDINER/RAVI: Jerri Bourgeois CNA II Additional Personnel: : Hortensia Grady RNC MATERNAL INFORMATION Delivery Anesthesia: Epidural Medications After Delivery: Pitocin Bolus-Please Comment; Pitocin Drip 20 Units/1000ml NSS Estimated Blood Loss (ml): 125 Delivery QBL: 125 Maternal Complications: None Provider Comments: of VMI, [place] position, w/ umbilical cord up against his chest almost tucked underneath the chin. Baby crying and placed on pts chest in stable condition. Cord clamped and cut after one minute. Cord blood collected. Placenta S/C/I, ff w/ decreased lochia. IV pitocin infusing. Perineum intact. Apgars 9,9. QBL 125 ml. Mother and baby in stable condition, plans to breastfeed. Attending MD is Dr Perry. LABOR SUMMARY EDC: 01/03/2019 00:00 No. Babies in Womb: 1 Attempted: No Labor Anesthesia: Epidural LABOR INFORMATION Reason for Induction: Not Applicable Onset of Labor: 01/05/2019 05:00 Complete Dilatation: 01/05/2019 09:42 Oxytocin: Augmentation Group B Beta Strep: Negative Antibiotics # of Doses: 0 Steroids Given: None Reason Steroids Not Administered: Not Applicable MEMBRANES Membranes Rupture Method: Spontaneous Rupture of Membranes: 01/04/2019 23:00 Length of Rupture (hr): 10.72 Amniotic Fluid Color: Clear STAGES OF LABOR Stage 1 hr: 4 Stage 1 min: 42 Stage 2 hr: 0 Stage 2 min: 1 Stage 3 hr: 0 Stage 3 min: 3 Total Time in Labor hr: 4 Total Time in Labor min: 46 VAGINAL DELIVERY Episiotomy: None Laceration #1: None Laceration Extension #1: N/A Laceration Repair: Not Applicable Sponge Count Correct: Yes Sharps Count Correct: Yes CSECTION DELIVERY Primary Indication: N/A Secondary Indication: N/A CSection Incidence: N/A Labor: N/A Elective: N/A CSection Incision: N/A BABY A INFORMATION Infant Delivery Date/Time: 01/05/2019 09:43 Method of Delivery: Vaginal Method of Delivery: Vaginal Born in Route : No : N/A Forceps: N/A Vacuum Extraction: N/A Shoulder Dystocia : No PRESENTATION/POSITION BABY A Presentation: Cephalic Presentation: Cephalic Cephalic Presentation: Vertex Vertex Position: Left Occipital Anterior Breech Presentation: N/A PLACENTA INFORMATION BABY A Placenta Delivery Time : 01/05/2019 09:46 Placenta Method of Delivery: Spontaneous Placenta Method of Delivery: Spontaneous Placenta Status: Delivered SCORES BABY A Heart Rate 1 min: >100 bpm Resp Effort 1 min: Good Cry Reflex Irritability 1 min: Cough or Sneeze or Pulls Away Muscle Tone 1 min: Active Motion Color 1 min: Body [place], Extremities Blue Resuscitation Effort 1 min: Tactile Stimulation SCORE 1 MIN: 9 Heart Rate 5 min: >100 bpm Resp Effort 5 min: Good Cry Reflex Irritability 5 min: Cough or Sneeze or Pulls Away Muscle Tone 5 min: Active Motion Color 5 min: Body [place], Extremities Blue Resuscitation Effort 5 min: Tactile Stimulation SCORE 5 MIN: 9 INFANT INFORMATION BABY A Gestational Age at Delivery: 40.2 Gestational Status: Full Term- 39- 40.6 Weeks Outcome : Liveborn Infant Condition : Stable Sex: Male Infant Sex: Male IDENTIFICATION BABY A Infant Verification Date/Time: 01/05/2019 10:14 ID Band Number: [id number] Mother's Name Verified: Yes RN Verifying Infant: Ida, RN Additional Verifying Personnel: Sharifrtin, RN WEIGHT/LENGTH BABY A Birthweight (gm): 2930 Weight (lb): 6 Weight (oz): 7 Length (in): 19.00 Length (cm): 48.26 CORD INFORMATION BABY A No. Cord Vessels: 3 Nuchal Cord : N/A Cord Blood Taken: Yes-For Eval (Mom's Blood Type - or O+) Infant Suction: None ASSESSMENT BABY A Infant Complications: Multiple Variable Decels Physical Findings at Delivery: Within Normal Limits Infant Respirations: Appears Normal Skin to Skin: Yes Skin to Skin: Yes Skin to Skin: Yes Burring Wheel Operator/ALS Called : No Infant Care By: Trini JUAREZ, RN/ D BELLVINICIUS, RNC Transferred To: Remains with Mother BABY B INFORMATION : N/A SIGNATURES Assignment: Na Bullard MD Signature: with User ID: Rose : with User ID: Rose
[2019-01-06] MEDS: IBUPROFEN 800 MG TABLET PO SCH (05:15)
[2019-01-06 07:07] LABS: HEMATOCRIT 26.3 % (36.0-47.0); HEMOGLOBIN 8.6 g/dL (12.0-15.5); MEAN CORPUSCULAR HEMOGLOBIN 27.3 pg (27.0-33.4); MEAN CORPUSCULAR HGB CONC 32.7 g/dL (32.0-36.0); MEAN CORPUSCULAR VOLUME 83 fl (80-97); PLATELET COUNT 191 10^3/uL (150-450); RED BLOOD COUNT 3.15 10^6/uL (3.72-5.28); RED CELL DISTRIBUTION WIDTH 14.8 % (11.5-14.0); WHITE BLOOD COUNT 8.7 10^3/uL (4.0-10.5)
[2019-01-06] MEDS: FERROUS SULFATE 325 MG TABLET PO SCH (11:16)
[2019-01-06] MEDS: SENNOSIDES/DOCUSATE 8.6-50 MG 1 EACH TABLET PO SCH (11:16)
[2019-01-06] MEDS: DOCUSATE SODIUM 100 MG CAPSULE PO SCH (11:16)
[2019-01-06] MEDS: PRENATAL VITAMIN W DHA CAPSULE PO SCH (11:16)
--- NOTE | 2019-01-06 11:23 | PDOC DISCHARGE SUMMARY ---
Final Diagnosis Discharge Date: 01/06/19 - Final Diagnosis (1) Anemia complicating , third trimester Is this a current diagnosis for this admission?: Yes (2) Delivery normal Is this a current diagnosis for this admission?: Yes Discharge Data - Discharge Medication Prescriptions: Ibuprofen [Motrin 800 mg Tablet] 800 mg PO Q8HP PRN #20 tablet PRN Reason: Abdominal Cramping Docusate Sodium [Colace 100 mg Capsule] 100 mg PO BID #60 capsule Ferrous Sulfate [Feosol 325 mg Tablet] 325 mg PO BID #60 tablet Home Medications: Vit,Calc76/Iron/Folic [Pnv 29-1 Tablet] 1 tab PO DAILY 12/20/18 Docusate Sodium [Colace 100 mg Capsule] 100 mg PO BID #60 capsule 01/06/19 Ferrous Sulfate [Feosol 325 mg Tablet] 325 mg PO BID #60 tablet 01/06/19 Ibuprofen [Motrin 800 mg Tablet] 800 mg PO Q8HP PRN #20 tablet 01/06/19 Reason(s) for Admission: Onset of Labor Procedures: NST, Ultrasound Intrapartum Procedure(s): Spontaneous Vaginal Delivery - Diagnosis Test Laboratory: Temp Pulse Resp BP Pulse Ox 98.1 F 70 18 112/65 100 01/06/19 07:56 01/06/19 07:56 01/06/19 07:56 01/06/19 07:56 01/06/19 07:56 01/05/19 01/05/19 01/06/19 03:15 04:55 06:46 RBC 3.73 3.15 L Hgb 10.0 L 8.6 L Hct 30.7 L 26.3 L Urine Opiates Screen NEGATIVE - Discharge information/Instructions Discharge Activity: Activity As Tolerated, Balance Activity w/Rest, No Lifting Over 10 Pounds, Pelvic Rest, No tub bath, Walk Frequently Discharge Diet: As Tolerated, Regular Disposition: HOME, SELF-CARE Follow up with: [facility]: 5, Weeks
[2019-01-06 11:48] VITALS: BP 120/69
== END 2019-01-06 14:00 | disposition home or self-care (01) | DRG 807 ==
LOC: LC 03:16 → LR 04:40 → 2S 12:33
PROVIDERS: ADMIT Obstetrics & Gynecology; ATTEND Obstetrics & Gynecology
PROC: 10E0XZZ Delivery of Products of Conception, External Approach (ICD-10-PCS; principal; 2019-01-05)
DX: O99.02 Anemia complicating childbirth (principal); Z37.0 Single live birth; D64.9 Anemia, unspecified; Z3A.40 40 weeks gestation of pregnancy; O76 Abnormality in fetal heart rate and rhythm complicating labor and delivery
CPT/HCPCS: 36415; 59025; 80307; 81005; 84112; 85025; 85027; 86592; 86850; 86900; 86901; 94760; J2590; J3010; J3490